=== PATIENT | female | born 2000 | race African-American/Black ===

== ENCOUNTER 2018-01-31 21:31 | Emergency (ER) | payer OTHER ==
[~2018-01-31] VITALS: Ht 170.2 cm; Wt 74.8 kg
[2018-01-31] MEDS ORDERED: ONDA4TAB7 PO (22:21)
--- NOTE | 2018-01-31 22:27 | PHYS DOC ---
Adult General Chief Complaint Chief Complaint headache HPI HPI 17 years old female presented to the emergency department with the headache stated she's been having vomiting and diarrhea all day today denies any other symptoms no neck pain no fever no chills Review of Systems Review of Systems Constitutional: Denies fever or chills [] Eyes: Denies change in visual acuity, redness, or eye pain [] HENT: Denies nasal congestion or sore throat [] Respiratory: Denies cough or shortness of breath [] Cardiovascular: No additional information not addressed in HPI [] GI: Denies abdominal pain : Denies dysuria or hematuria [] Musculoskeletal: Denies back pain or joint pain [] Integument: Denies rash or skin lesions [] Neurologic: Denies headache, focal weakness or sensory changes [] Endocrine: Denies polyuria or polydipsia [] All other systems were reviewed and found to be within normal limits, except as documented in this note. Current Medications Current Medications Current Medications Medications (Trade) Dose Ordered Sig/Ghulam Start Time Stop Time Status Last Admin Dose Admin Ketorolac Tromethamine (Toradol Im) 60 mg 1X ONCE 01/31/18 22:30 01/31/18 22:31 UNV Ondansetron HCl (Zofran Odt) 4 mg 1X ONCE 01/31/18 22:30 01/31/18 22:31 UNV Prochlorperazine Edisylate (Compazine) 10 mg 1X ONCE 01/31/18 22:30 01/31/18 22:31 UNV Physical Exam Physical Exam Constitutional: Well developed, well nourished, no acute distress, non-toxic appearance. [] HENT: Normocephalic, atraumatic, bilateral external ears normal, oropharynx moist, no oral exudates, nose normal. [] Eyes: PERRLA, EOMI, conjunctiva normal, no discharge. [] Neck: Normal range of motion, no tenderness, supple, no stridor. [] Cardiovascular:Heart rate regular rhythm, no murmur [] Lungs & Thorax: Bilateral breath sounds clear to auscultation [] Abdomen: Bowel sounds normal, soft, no tenderness, no masses, no pulsatile masses. [] Skin: Warm, dry, no erythema, no rash. [] Back: No tenderness, no CVA tenderness. [] Extremities: No tenderness, no cyanosis, no clubbing, ROM intact, no edema. [] Neurologic: Alert and oriented X 3, normal motor function, normal sensory function, no focal deficits noted. [] Psychologic: Affect normal, judgement normal, mood normal. [] EKG EKG [] Radiology/Procedures Radiology/Procedures [] Impressions: Patient refused IV fluids refuse blood work stated I just did something to my nausea, headache I explained the risk and benefits she verbalizes understanding Course & Med Decision Making Course & Med Decision Making Pertinent Labs and Imaging studies reviewed. (See chart for details) [] Final Impression Final Impression [] Problems: (1) Headache Qualifiers: Qualified Codes: G44.209 - Tension-type headache, unspecified, not intractable (2) Viral gastroenteritis Dragon Disclaimer Dragon Disclaimer This electronic medical record was generated, in whole or in part, using a voice recognition dictation system. ANDREA CLAYTON MD Jan 31, 2018 22:27
[2018-01-31] MEDS ORDERED: PROCHLORPERAZINE 10 MG/2 ML VIAL. IM ONE (22:30)
[2018-01-31] MEDS ORDERED: ONDANSETRON ODT 4 MG TAB.RAPDIS PO ONE (22:30)
[2018-01-31] MEDS ORDERED: KETOROLAC 60 MG/2 ML VIAL. IM ONE (22:30)
[2018-01-31 22:50] LABS: BACTERIA,URINE FEW /HPF (0-FEW); BILIRUBIN,URINE NEG (NEG); CLARITY,URINE CLOUDY; COLOR,URINE STRAW; GLUCOSE,URINE NEG (NEG); NITRITE,URINE NEG (NEG); RBC,URINE 0 /HPF (0-2); SQUAMOUS EPITHELIAL CELL,UR FEW /LPF; UROBILINOGEN,URINE 0.2 mg/dL (0.2 mg/dL)
[2018-01-31 23:25] VITALS: BP 134/83
== END 2018-01-31 23:25 | disposition home or self-care (01) ==
LOC: ER 21:31
DX: A08.4 Viral intestinal infection, unspecified (principal); R51 Headache
CPT/HCPCS: 81001; 81025; 87086; 96372; 99284; J0780; J1885; Q0162

== ENCOUNTER 2018-03-11 17:23 | Emergency (ER) | payer OTHER ==
[~2018-03-11] VITALS: Ht 170.2 cm; Wt 80.2 kg
[2018-03-11 17:23] VITALS: BP 117/63
[~2018-03-11 17:23] MED LIST: ONDA4TAB7 PO
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
== END 2018-03-11 17:57 | disposition home or self-care (01) ==
LOC: ER 17:23
DX: S30.1XXA Contusion of abdominal wall, initial encounter (principal); R07.81 Pleurodynia; W22.03XA Walked into furniture, initial encounter; Y93.89 Activity, other specified; Y92.89 Other specified places as the place of occurrence of the external cause; Y99.8 Other external cause status
CPT/HCPCS: 71111; 99283

== ENCOUNTER 2018-03-29 12:56 | Emergency (ER) | payer OTHER ==
[~2018-03-29] VITALS: Ht 170.2 cm; Wt 68.0 kg
[2018-03-29] MEDS ORDERED: ONDANSETRON ODT 4 MG TAB.RAPDIS PO ONE (13:30)
--- NOTE | 2018-03-29 14:15 | PHYS DOC ---
Past History Past Medical History: No Pertinent History Past Surgical History: No Surgical History Alcohol Use: None Drug Use: None Adult General Chief Complaint Chief Complaint: NAUSEA/VOMITING/DIARRHEA HPI HPI Patient is a 17 year old female who presents with of nausea and vomiting and diarrhea. Patient states she had 2 episodes of vomiting this morning and one episode of diarrhea with the last episode of vomiting at 7:30 AM. Patient denies abdominal pain, sick contact, fever and chills, urinary symptoms, weakness and dizziness. 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 Review of Systems Review of Systems Constitutional: Denies fever or chills [] Eyes: Denies change in visual acuity, redness, or eye pain [] HENT: Denies nasal congestion or sore throat [] Respiratory: Denies cough or shortness of breath [] Cardiovascular: No additional information not addressed in HPI [] GI: Denies abdominal pain, reports nausea, vomiting, diarrhea [] : Denies dysuria or hematuria [] Musculoskeletal: Denies back pain or joint pain [] Integument: Denies rash or skin lesions [] Neurologic: Denies headache, focal weakness or sensory changes [] Endocrine: Denies polyuria or polydipsia [] All other systems were reviewed and found to be within normal limits, except as documented in this note. Current Medications Current Medications Current Medications Medications (Trade) Dose Ordered Sig/Ghulam Start Time Stop Time Status Last Admin Dose Admin Ondansetron HCl (Zofran Odt) 4 mg 1X ONCE 03/29/18 13:30 03/29/18 13:34 DC Allergies Allergies Allergies Coded Allergies Type Severity Reaction Last Updated Verified No Known Drug Allergies 01/31/18 No Physical Exam Physical Exam Constitutional: Well developed, well nourished, no acute distress, non-toxic appearance. [] HENT: Normocephalic, atraumatic, oropharynx moist, no oral exudates, nose normal. [] Eyes: PERRLA, EOMI, conjunctiva normal, no discharge. [] Neck: Normal range of motion, no tenderness, supple, no stridor. [] Cardiovascular:Heart rate regular rhythm, no murmur [] Lungs & Thorax: Bilateral breath sounds clear to auscultation [] Abdomen: Bowel sounds normal, soft, no tenderness, no masses, no pulsatile masses. [] Skin: Warm, dry, no erythema, no rash. [] Back: No tenderness, no CVA tenderness. [] Extremities: No tenderness, no cyanosis, no clubbing, ROM intact, no edema. [] Neurologic: Alert and oriented X 3, normal motor function, normal sensory function, no focal deficits noted. [] Psychologic: Affect normal, judgement normal, mood normal. [] EKG EKG [] Radiology/Procedures Radiology/Procedures [] Course & Med Decision Making Course & Med Decision Making Pertinent Labs reviewed. (See chart for details) Evaluation of patient in ER showed 17-year-old female patient presented to ER with complaining of nausea and vomiting and diarrhea. She had unremarkable physical exam. test was negative and UA showed mild UTI. Plan to discharge patient home with diagnose of viral gastroenteritis and UTI. Dragon Disclaimer Dragon Disclaimer This electronic medical record was generated, in whole or in part, using a voice recognition dictation system. Departure Departure: Impression: Primary Impression: Acute gastroenteritis Additional Impression: Urinary tract infection Disposition: HOME, SELF-CARE (at 1500) Condition: IMPROVED Referrals: PCPALEX (PCP) Patient Instructions: Urinary Tract Infection, Viral Gastroenteritis Additional Instructions: Drink plenty of liquids Follow-up with your primary care physician in 3-5 days Return to ER if not getting better Scripts Ondansetron Hcl (ZOFRAN) 4 Mg Tablet 1 TAB PO Q6HRS for nausea and vomiting, #12 TAB Prov: JUANITO LUIS MD 03/29/18 Ciprofloxacin Hcl (CIPRO) 250 Mg Tablet 1 TAB PO BID for urinary tract infection, #6 TAB Prov: JUANITO LUIS MD 03/29/18 Problem Qualifiers JUANITO LUIS MD Mar 29, 2018 14:15
[2018-03-29 14:42] LABS: AMORPHOUS SEDIMENT,UR PRESENT /HPF; BACTERIA,URINE FEW /HPF (0-FEW); BILIRUBIN,URINE NEG (NEG); CLARITY,URINE CLOUDY; COLOR,URINE YELLOW; GLUCOSE,URINE NEG (NEG); NITRITE,URINE NEG (NEG); RBC,URINE OCC /HPF (0-2); SQUAMOUS EPITHELIAL CELL,UR MOD /LPF; UROBILINOGEN,URINE 0.2 mg/dL (0.2 mg/dL)
[2018-03-29] MEDS ORDERED: CIPR250T30 PO (15:03)
[2018-03-29] MEDS ORDERED: ONDA4TAB7 PO (15:03)
[2018-03-29 16:00] VITALS: BP 108/60
== END 2018-03-29 15:10 | disposition home or self-care (01) ==
LOC: ER 12:56
DX: K52.9 Noninfective gastroenteritis and colitis, unspecified (principal); N39.0 Urinary tract infection, site not specified
CPT/HCPCS: 81001; 81025; 87086; 99283; Q0162

== ENCOUNTER 2018-05-30 11:07 | Emergency (ER) | payer OTHER ==
[~2018-05-30] VITALS: Ht 170.2 cm; Wt 80.2 kg
[~2018-05-30 11:07] MED LIST changes: +CIPR250T30 PO
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
[2018-05-30 12:05] VITALS: BP 133/71
== END 2018-05-30 12:10 | disposition home or self-care (01) ==
LOC: ER 11:07
DX: S90.122A Contusion of left lesser toe(s) without damage to nail, initial encounter (principal); W50.0XXA Accidental hit or strike by another person, initial encounter; Y93.89 Activity, other specified; Y92.89 Other specified places as the place of occurrence of the external cause; Y99.8 Other external cause status
CPT/HCPCS: 73630; 99283

== ENCOUNTER 2018-06-13 04:58 | Emergency (ER) | payer OTHER ==
[~2018-06-13] VITALS: Ht 170.2 cm; Wt 86.0 kg
[2018-06-13] MEDS ORDERED: ONDA4TAB7 PO (05:47)
--- NOTE | 2018-06-13 05:55 | ED.ADGEN ---
Past History Past Medical History: No Pertinent History Past Surgical History: No Surgical History Alcohol Use: None Drug Use: None Adult General Chief Complaint Chief Complaint vomiting HPI HPI 17 years old female presented to the emergency department with vomiting and diarrhea. Describes her diarrhea as watery. No abdominal pain. Minimal cramps prior to her diarrhea. No fever no chills she is unable to keep any solid food over she is able to drink Review of Systems Review of Systems HENT: Denies nasal congestion or sore throat [] Respiratory: Denies cough or shortness of breath [] Cardiovascular: No additional information not addressed in HPI [] GI: Denies abdominal pain, nausea, vomiting, bloody stools or diarrhea [] : Denies dysuria or hematuria [] Musculoskeletal: Denies back pain or joint pain [] In All other systems were reviewed and found to be within normal limits, except as documented in this note. Current Medications Current Medications Current Medications Medications (Trade) Dose Ordered Sig/Ghulam Start Time Stop Time Status Last Admin Dose Admin Ondansetron HCl (Zofran Odt) 4 mg 1X ONCE 06/13/18 06:00 06/13/18 06:01 06/13/18 05:36 4 MG Allergies Allergies Allergies Coded Allergies Type Severity Reaction Last Updated Verified No Known Drug Allergies 01/31/18 No Physical Exam Physical Exam Eyes: PERRLA, EOMI, conjunctiva normal, no discharge. [] Neck: Normal range of motion, no tenderness, supple, no stridor. [] Cardiovascular:Heart rate regular rhythm, no murmur [] Lungs & Thorax: Bilateral breath sounds clear to auscultation [] Abdomen: Bowel sounds normal, soft, no tenderness, no masses, no pulsatile masses. [] Skin: Warm, dry, no erythema, no rash. [] Back: No tenderness, no CVA tenderness. [] Extremities: No tenderness, no cyanosis, no clubbing, ROM intact, no edema. [] Current Patient Data Vital Signs Vital Signs Date Time Temp Pulse Resp B/P (MAP) Pulse Ox O2 Delivery O2 Flow Rate FiO2 06/13/18 04:58 98.3 102 18 98 Room Air Lab Results Laboratory Tests Test 06/13/18 05:19 POC Urine HCG, Qualitative hcg negative (Negative) EKG EKG [] Radiology/Procedures Radiology/Procedures [] Course & Med Decision Making Course & Med Decision Making Pertinent Labs and Imaging studies reviewed. (See chart for details) [] Final Impression Final Impression [] Problems: (1) Viral gastroenteritis Dragon Disclaimer Dragon Disclaimer This electronic medical record was generated, in whole or in part, using a voice recognition dictation system. ANDREA CLAYTON MD Jun 13, 2018 05:55
[2018-06-13] MEDS ORDERED: ONDANSETRON ODT 4 MG TAB.RAPDIS PO ONE (06:00)
[2018-06-13 06:03] VITALS: BP 144/72
== END 2018-06-13 06:04 | disposition home or self-care (01) ==
LOC: ER 04:58
DX: A08.4 Viral intestinal infection, unspecified (principal)
CPT/HCPCS: 81025; 99283; Q0162

== ENCOUNTER 2018-10-10 08:11 | Emergency (ER) | payer OTHER ==
[~2018-10-10] VITALS: Ht 170.2 cm; Wt 72.6 kg
[2018-10-10] MEDS ORDERED: IV NORMAL SALINE 1,000ML 1,000 ML IV SCH (08:20)
--- NOTE | 2018-10-10 08:25 | PHYS DOC ---
Past History Past Medical History: No Pertinent History Past Surgical History: No Surgical History Alcohol Use: None Drug Use: None Adult General Chief Complaint Chief Complaint: NAUSEA/VOMITING/DIARRHEA [facility] HPI Patient is a 17-year-old female who presents for evaluation of nausea and vomiting. She states that she has had 4 episodes of vomiting today. She reports that she felt fine yesterday and ate [place] food last night. She did have one episode of diarrhea as well. She denies . She denies any past surgical abdominal history. She is alert and oriented 4, calm, and appears to be in no distress. She reports she is not having any abdominal discomfort at this time. She also denies back or flank pain, pelvic pain/bleeding/discharge, hematemesis, chest pain or shortness of breath, nausea or vomiting. Review of Systems Review of Systems Constitutional: Denies fever or chills [] Eyes: Denies change in visual acuity, redness, or eye pain [] HENT: Denies nasal congestion or sore throat [] Respiratory: Denies cough or shortness of breath [] Cardiovascular: No additional information not addressed in HPI [] GI: Denies abdominal pain, reports nausea and vomiting, no hematemesis, 1 episode of diarrhea : Denies dysuria or hematuria [] Musculoskeletal: Denies back pain or joint pain [] Integument: Denies rash or skin lesions [] Neurologic: Denies headache, focal weakness or sensory changes [] Endocrine: Denies polyuria or polydipsia [] All other systems were reviewed and found to be within normal limits, except as documented in this note. Allergies Allergies Allergies Coded Allergies Type Severity Reaction Last Updated Verified No Known Drug Allergies 01/31/18 No Physical Exam Physical Exam Constitutional: Well developed, well nourished, no acute distress, non-toxic appearance, appears comfortable HENT: Normocephalic, atraumatic, bilateral external ears normal, oropharynx moist, no oral exudates, nose normal. [] Eyes: PERRLA, EOMI, conjunctiva normal, no discharge. [] Neck: Normal range of motion, no tenderness, supple, no stridor. [] Cardiovascular:Heart rate regular rhythm, no murmur [] Lungs & Thorax: Bilateral breath sounds clear to auscultation [] Abdomen: Bowel sounds normal, soft, mild right upper quadrant tenderness is present, no masses, no pulsatile masses. Skin: Warm, dry, no erythema, no rash. [] Back: No tenderness, no CVA tenderness. [] Extremities: No tenderness, no cyanosis, no clubbing, ROM intact, no edema. [] Neurologic: Alert and oriented X 3, normal motor function, normal sensory function, no focal deficits noted. [] Psychologic: Affect normal, judgement normal, mood normal. [] EKG EKG [] Radiology/Procedures Radiology/Procedures [] Course & Med Decision Making Course & Med Decision Making @1010 patient updated on all lab results. She states that she is feeling much better and is no longer nauseated. She denies any abdominal discomfort and is asking to be discharged home. Advised close follow-up with her PCP in the next 2-3 days and return to the emergency Department immediately for abdominal pain, fevers or chills, new or worsening symptoms. She expresses verbal understanding and agreement with the plan. Workup today fails reveal any emergent pathology. The patient stable for discharge at this time. Dragon Disclaimer Dragon Disclaimer This electronic medical record was generated, in whole or in part, using a voice recognition dictation system. Departure Departure: Impression: Primary Impression: Nausea & vomiting Disposition: 01 HOME, SELF-CARE Condition: STABLE Referrals: REZA HANCOCK PA-C (PCP) Patient Instructions: Nausea and Vomiting Additional Instructions: Take the prescribed medications directed. Follow-up with your doctor next 2-3 days. Return to the emergency Department immediately for fever, abdominal pain, new or worsening symptoms. Scripts Ondansetron Hcl (ZOFRAN) 4 Mg Tablet 1 TAB PO Q6HRS for vomiting, #20 TAB Prov: KUMAR MCKEE DO 10/10/18 KUMAR MCKEE DO Oct 10, 2018 08:24
[2018-10-10 08:49] LABS: BASO % 1 % (0-3); EOS # 0.1 x10^3/uL (0.0-0.7); EOS % 2 % (0-3); HEMATOCRIT 38.8 % (36.0-47.0); HEMOGLOBIN 12.5 g/dL (12.0-15.5); LYMPH # 1.4 x10^3/uL (1.0-4.8); LYMPH % 47 % (24-48); MEAN CORPUSCULAR HEMOGLOBIN 27 pg (25-35); MEAN CORPUSCULAR HGB CONC 32 g/dL (31-37); MEAN CORPUSCULAR VOLUME 85 fL (79-100); MONO # 0.3 x10^3/uL (0.0-1.1); MONO % 10 % (0-9); NEUT # 1.2 x10^3uL (1.8-7.7); NEUT % 41 % (31-73); PLATELET COUNT 218 x10^3/uL (140-400); RED BLOOD COUNT 4.59 x10^6/uL (3.50-5.40); RED CELL DISTRIBUTION WIDTH 13.8 % (11.5-14.5); WHITE BLOOD COUNT 2.9 x10^3/uL (4.0-11.0)
[2018-10-10 08:57] LABS: ALBUMIN 4.2 g/dL (3.4-5.0); ALBUMIN/GLOBULIN RATIO 1.3 (1.0-1.7); CALCIUM 9.4 mg/dL (8.5-10.1); CREATININE 0.6 mg/dL (0.6-1.0); GFR 155.8; POTASSIUM 3.8 mmol/L (3.5-5.1); TOTAL BILIRUBIN 0.2 mg/dL (0.2-1.0); TOTAL PROTEIN 7.5 g/dL (6.4-8.2)
[2018-10-10] MEDS ORDERED: FAMOTIDINE 20 MG/2 ML VIAL IVP ONE (09:00)
[2018-10-10] MEDS ORDERED: DICYCLOMINE HCL 20 MG TABLET PO ONE (09:00)
[2018-10-10] MEDS ORDERED: ONDANSETRON PF 4 MG/2 ML VIAL. IV ONE (09:00)
[2018-10-10 09:54] LABS: U PREG PATIENT NEGATIVE (NEG)
[2018-10-10 10:02] LABS: BILIRUBIN,URINE NEG (NEG); CLARITY,URINE CLEAR; COLOR,URINE YELLOW; GLUCOSE,URINE NEG (NEG); NITRITE,URINE NEG (NEG); UROBILINOGEN,URINE 0.2 mg/dL (0.2 mg/dL); WBC,URINE 0 /HPF (0-4)
[2018-10-10 10:03] LABS: BACTERIA,URINE 0 /HPF (0-FEW); SQUAMOUS EPITHELIAL CELL,UR FEW /LPF
[2018-10-10] MEDS ORDERED: ONDA4TAB7 PO (10:13)
[2018-10-10 10:31] VITALS: BP 117/91
== END 2018-10-10 10:30 | disposition home or self-care (01) ==
LOC: ER 08:11
DX: R11.2 Nausea with vomiting, unspecified (principal); R19.7 Diarrhea, unspecified; R10.11 Right upper quadrant pain
CPT/HCPCS: 36415; 80053; 81001; 81025; 83690; 85025; 96361; 96374; 96375; 99285; J2405; J3490; J7030

== ENCOUNTER 2019-02-13 08:20 | Emergency (ER) | payer OTHER ==
[~2019-02-13] VITALS: Ht 170.2 cm; Wt 86.0 kg
[2019-02-13 08:44] VITALS: BP 130/78
[2019-02-13] MEDS ORDERED: ONDANSETRON ODT 4 MG TAB.RAPDIS PO ONE (09:00)
[2019-02-13] MEDS ORDERED: ONDA4TAB7 PO (09:13)
--- NOTE | 2019-02-13 09:13 | PHYS DOC ---
Past History Past Medical History: No Pertinent History Past Surgical History: No Surgical History Alcohol Use: None Drug Use: None Adult General Chief Complaint Chief Complaint: NAUSEA/VOMITING/DIARRHEA HPI HPI Patient is a 18 year old F who presents with nausea/vomiting/diarrhea starting this morning. 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 No one ate similar food as her. She feels that this is similar to previous episodes of food poisoning. She describes mild generalized abdominal discomfort with several episodes of nausea and vomiting this morning. She has no other associated symptoms at this time. She has no other exacerbating or alleviating factors. Review of Systems Review of Systems Constitutional: Denies fever or chills [] Eyes: Denies change in visual acuity, redness, or eye pain [] HENT: Denies nasal congestion or sore throat [] Respiratory: Denies cough or shortness of breath [] Cardiovascular: No additional information not addressed in HPI [] GI: Negative except history of present illness : Denies dysuria or hematuria [] Musculoskeletal: Denies back pain or joint pain [] Integument: Denies rash or skin lesions [] Neurologic: Denies headache, focal weakness or sensory changes [] Endocrine: Denies polyuria or polydipsia [] All other systems were reviewed and found to be within normal limits, except as documented in this note. Family History Family History No pertinent family medical history was reported Current Medications Current Medications No current medications Current Medications Medications (Trade) Dose Ordered Sig/Ghulam Start Time Stop Time Status Last Admin Dose Admin Ondansetron HCl (Zofran Odt) 4 mg 1X ONCE 02/13/19 09:00 02/13/19 09:01 DC 02/13/19 08:50 4 MG Allergies Allergies Allergies Coded Allergies Type Severity Reaction Last Updated Verified No Known Drug Allergies 01/31/18 No Physical Exam Physical Exam Constitutional: Well developed, well nourished, no acute distress, non-toxic appearance. [] HENT: Normocephalic, atraumatic Eyes: EOMI, conjunctiva normal, no discharge. [] Neck: Normal range of motion, no tenderness, supple, no stridor. [] Cardiovascular:Heart rate regular rhythm, no murmur [] Lungs & Thorax: Bilateral breath sounds clear to auscultation [] Abdomen: Bowel sounds normal, soft, no masses, no pulsatile masses. [] Mild generalized nonfocal tenderness to palpation Skin: Warm, dry, no erythema, no rash. [] Back: No tenderness, no CVA tenderness. [] Extremities: No tenderness, no cyanosis, no clubbing, ROM intact, no edema. [] Neurologic: Alert and oriented X 3, normal motor function, normal sensory function, no focal deficits noted. [] Psychologic: Affect normal, judgement normal, mood normal. [] Current Patient Data Vital Signs Vital Signs Date Time Temp Pulse Resp B/P (MAP) Pulse Ox O2 Delivery O2 Flow Rate FiO2 02/13/19 08:44 98.5 88 18 100 Room Air EKG EKG [] Radiology/Procedures Radiology/Procedures [] Course & Med Decision Making Course & Med Decision Making Pertinent Labs and Imaging studies reviewed. (See chart for details) Sharifa has a broad differential diagnosis which was discussed. It was explained appendicitis and other surgical emergencies were considered however her symptoms are more consistent with a viral gastroenteritis versus food poisoning. Labs and imaging were declined. Sharifa verbalized understanding that this may limit the diagnosis. She instead opted to try oral antinausea medications, Zofran, and a by mouth fluid challenge. Dragon Disclaimer Dragon Disclaimer This electronic medical record was generated, in whole or in part, using a voice recognition dictation system. Departure Departure: Impression: Primary Impression: Viral gastroenteritis Disposition: 01 HOME, SELF-CARE Condition: STABLE Referrals: REZA HANCOCK PA-C (PCP) Patient Instructions: Viral Gastroenteritis Additional Instructions: Sharifa was seen in the emergency department for nausea/vomiting/diarrhea. No emergency medical condition was found on history or physical exam. Her symptoms were treated with oral antinausea medications. She was able tolerate fluids by mouth prior to discharge. She was given a prescription for nausea medication to be used as needed. She is advised to return to the emergency room if she develops new or worsening symptoms. Specifically if she develops focal pain in her belly, fevers sweats or chills. She was also advised follow up with her primary care doctor in the next 3-5 days for further management. Scripts Ondansetron Hcl (ZOFRAN) 4 Mg Tablet 1 TAB PO Q6HRS for nausea, #20 TAB Prov: RHIANNA ALEGRE MD 02/13/19 RHIANNA ALEGRE MD Feb 13, 2019 09:13
== END 2019-02-13 09:45 | disposition home or self-care (01) ==
LOC: ER 08:20
DX: A08.4 Viral intestinal infection, unspecified (principal)
CPT/HCPCS: 99283; Q0162